=== PATIENT | female | born 1975 | race Caucasian/White ===

== ENCOUNTER → 2018-08-06 | Outpatient (CLI) | payer OTHER | LOC: LAB 11:00 | PROVIDERS: ATTEND Family Medicine | DX: R10.9 Unspecified abdominal pain (principal); G89.29 Other chronic pain | CPT/HCPCS: 36415; 82040; 82150; 82247; 82310; 82374; 82435; 82565; 82784; 82947; 83516; 83690; 84075; 84132; 84155; 84295; 84450; 84460; 84520; 86003 ==

== ENCOUNTER → 2018-08-18 | Outpatient (CLI) | payer OTHER ==
--- NOTE | 2018-08-18 09:43 | RADIOLOGY IMAGING REPORT ---
FACILITY: PATIENT NAME: Teresa Hutchison : 1975 MR: [id number] V: [id number] EXAM DATE: ORDERING PHYSICIAN: CHUY AARON TECHNOLOGIST: Location: [facility] Patient: Teresa Hutchison : 1975 Visit/Account:[id number] Date of Sevice: 08/18/2018 EXAMINATION: Abdominal ultrasound complete HISTORY: Abdominal pain. COMPARISON: None. FINDINGS: Gallbladder: No stones, wall thickening, pericholecystic fluid or sonographic Diaz sign. Liver: Negative. Common duct: Normal measuring 1.9 mm. Pancreas: Negative. Spleen: Normal in size and echogenicity measuring 7.7 cm in length. Kidneys: Normal in size and echogenicity, the right measures 10.5 cm in length, and the left 9.5 cm. No hydronephrosis. Upper abdominal aorta and IVC: Negative. Ascites: None. IMPRESSION: Normal abdominal ultrasound. Report Dictated By: Kalpana Tejada MD at 08/18/2018 9:38 AM Report E-Signed By: Kalpana Tejada MD at 08/18/2018 9:39 AM WSN:[email or web address]
== END ==
LOC: US 07:20
PROVIDERS: ATTEND Family Medicine
DX: R10.9 Unspecified abdominal pain (principal)
CPT/HCPCS: 76700

== ENCOUNTER 2018-10-07 00:38 | Day surgery (SDC) | payer OTHER ==
[2018-10-07] VITALS (7 sets, daily range): BP systolic 80–115; BP diastolic 54–89
[~2018-10-07] VITALS: Ht 177.8 cm; Wt 57.6 kg
[~2018-10-07 00:38] MED LIST: ASCO-182 PO; CHOL10005 PO; D ME; PROG100C PO
[2018-10-07] MEDS ORDERED: NORMOSOL R SOLN(*) 1000 ML BAG 1,000 ML IV PRN (11:00)
[2018-10-07] MEDS ORDERED: LIDOCAINE/SOD BICARB 8.4% SYR ID ONE (11:00)
[2018-10-07] MEDS ORDERED: PROPOFOL EMUL(*) 10MG/ML 20 ML 40 ML ONE (12:29)
[2018-10-07] MEDS ORDERED: LIDOCAINE 2% JELLY 30 ML TUBE ONE (12:31)
== END 2018-10-07 14:40 | disposition home or self-care (01) ==
LOC: OR 00:38
PROVIDERS: ATTEND Internal Medicine Gastroenterology
DX: Z12.11 Encounter for screening for malignant neoplasm of colon (principal); K57.30 Diverticulosis of large intestine without perforation or abscess without bleeding
CPT/HCPCS: 00811; 45380; 81025; 88305; J2704